=== PATIENT | male | born 1990 | race African-American/Black ===

== ENCOUNTER 2018-11-19 18:06 | Emergency (ER) | payer SELFPAY ==
[~2018-11-19] VITALS: Ht 167.6 cm; Wt 72.6 kg
[2018-11-19 18:34] VITALS: BP 123/67
--- NOTE | 2018-11-19 18:42 | PHYS DOC ---
Past Medical History Past Medical History: No Pertinent History Past Surgical History: No Surgical History Alcohol Use: Rarely Drug Use: Marijuana Adult General Chief Complaint Chief Complaint: SEXUALLY TRANSMITTED DISEASE HPI HPI Patient is a 28 year old Male who presents with sexual partner diagnosed with chlamydia. Patient is here for testing and treatment. Patient denies any symptoms of sexually transmitted diseases. Review of Systems Review of Systems : sexual transmitted disease exposure. Denies dysuria or hematuria [] All other systems were reviewed and found to be within normal limits, except as documented in this note. Current Medications Current Medications Current Medications Medications (Trade) Dose Ordered Sig/Amanda Start Time Stop Time Status Last Admin Dose Admin Azithromycin (Zithromax) 1,000 mg 1X ONCE 11/19/18 18:45 11/19/18 18:46 DC 11/19/18 19:10 1,000 MG Ceftriaxone Sodium (Rocephin Im) 250 mg 1X ONCE 11/19/18 18:45 11/19/18 18:46 DC 11/19/18 19:10 250 MG Allergies Allergies Allergies Coded Allergies Type Severity Reaction Last Updated Verified No Known Drug Allergies 10/02/13 No Physical Exam Physical Exam Constitutional: Well developed, well nourished, no acute distress, non-toxic appearance. [] Abdomen: Bowel sounds normal, soft, no tenderness, no masses, no pulsatile masses. [] Skin: Warm, dry, no erythema, no rash. [] Neurologic: Alert and oriented X 3, normal motor function, normal sensory function, no focal deficits noted. [] Psychologic: Affect normal, judgement normal, mood normal. Normal Physical Exam [] Current Patient Data Vital Signs Vital Signs Date Time Temp Pulse Resp B/P (MAP) Pulse Ox O2 Delivery O2 Flow Rate FiO2 11/19/18 18:34 98.5 98 16 123/67 (85) 100 Room Air 98.5 Lab Values Laboratory Tests Test 11/19/18 18:45 Urine Color Janelle Urine Clarity Clear Urine pH 6.5 Urine Specific Sinclair >=1.030 Urine Protein Negative mg/dL (NEG-TRACE) Urine Glucose (UA) Negative mg/dL (NEG) Urine Ketones (Stick) Negative mg/dL (NEG) Urine Blood Negative (NEG) Urine Nitrite Negative (NEG) Urine Bilirubin Negative (NEG) Urine Urobilinogen Dipstick 1.0 mg/dL (0.2 mg/dL) Urine Leukocyte Esterase Small (NEG) Urine RBC 0 /HPF (0-2) Urine WBC 1-4 /HPF (0-4) Urine Squamous Epithelial Cells Occ /LPF Urine Bacteria 0 /HPF (0-FEW) Urine Mucus Mod /LPF EKG EKG [] Radiology/Procedures Radiology/Procedures [] Course & Med Decision Making Course & Med Decision Making Patient denies any pain. Abdomen is soft and nontender. Patient denies any abdominal pain, dysuria, penile discharge, testicle pain, penile pain. Patient has no penile discharge or sores to his genitals. Vital signs within normal limits. Patient is treated with Rocephin and azithromycin today. Patient is told that he will be called in 48 hours only if his results are positive. Dragon Disclaimer Dragon Disclaimer This electronic medical record was generated, in whole or in part, using a voice recognition dictation system. Departure Departure Impression: Primary Impression: Sexually transmitted disease exposure Disposition: HOME, SELF-CARE Condition: STABLE Referrals: NO PCP (PCP) Patient Instructions: Sexually Transmitted Disease Additional Instructions: FOLLOW UP WITH PRIMARY CARE IF NEEDED. YOU WILL BE CALLED ONLY IF YOU ARE POSITIVE. QI SANCHEZ [employer]RELATED [employer] Nov 19, 2018 18:42
[2018-11-19] MEDS ORDERED: cefTRIAXone IM 250 MG VIAL IM ONE (18:45)
[2018-11-19] MEDS ORDERED: AZITHROMYCIN 250 MG TABLET. PO ONE (18:45)
[2018-11-19 19:15] LABS: BILIRUBIN,URINE NEGATIVE (NEG); CLARITY,URINE CLEAR; COLOR,URINE AMBER; NITRITE,URINE NEGATIVE (NEG); PH,URINE 6.5; PROTEIN,URINE NEGATIVE (NEG-TRACE)
[2018-11-19 19:29] LABS: RBC,URINE 0 /HPF (0-2)
[2018-11-19 19:30] LABS: BACTERIA,URINE 0 /HPF (0-FEW); SQUAMOUS EPITHELIAL CELL,UR OCC /LPF
== END 2018-11-19 19:35 | disposition home or self-care (01) ==
LOC: ER 18:06
DX: Z20.2 Contact with and (suspected) exposure to infections with a predominantly sexual mode of transmission (principal)
CPT/HCPCS: 81001; 87086; 87491; 87591; 96372; 99284; J0696; Q0144

== ENCOUNTER 2018-11-26 09:51 | Emergency (ER) | payer SELFPAY ==
[~2018-11-26] VITALS: Ht 167.6 cm; Wt 72.6 kg
[2018-11-26] MEDS ORDERED: IV NORMAL SALINE 1000ML BAG 1,000 ML IV SCH (09:57)
--- NOTE | 2018-11-26 10:15 | PHYS DOC ---
Past Medical History Past Medical History: No Pertinent History Past Surgical History: No Surgical History Alcohol Use: Rarely Drug Use: Marijuana Adult General Chief Complaint Chief Complaint: ABDOMINAL PAIN HPI HPI 28 year male presents immersed for complaints of abdominal pain, vomiting, nausea, decreased oral intake. Patient was treated here within the last 2 weeks for chlamydia. He describes pain as sharp sensation, located in the middle of his abdomen does have some radiation of the right lower quadrant. Denies any diarrhea, dysuria, fever. Unable to keep oral intake down states he vomits with food or water. Review of Systems Review of Systems Constitutional: Denies fever or chills [] Respiratory: Denies cough or shortness of breath [] Cardiovascular: No additional information not addressed in HPI [] GI: + abdominal pain, nausea, vomiting, no bloody stools or diarrhea [] : Denies dysuria or hematuria [] Musculoskeletal: Denies back pain or joint pain [] Integument: Denies rash or skin lesions [] Neurologic: Denies headache, focal weakness or sensory changes [] All other systems were reviewed and found to be within normal limits, except as documented in this note. Current Medications Current Medications Current Medications Medications (Trade) Dose Ordered Sig/Amanda Start Time Stop Time Status Last Admin Dose Admin Info (CONTRAST GIVEN -- Rx MONITORING) 1 each PRN DAILY PRN 11/26/18 11:30 11/28/18 11:29 Iohexol (Omnipaque 300 Mg/ml) 75 ml 1X ONCE 11/26/18 11:15 11/26/18 11:16 DC 11/26/18 11:29 75 ML Morphine Sulfate (Morphine Sulfate) 4 mg 1X ONCE 11/26/18 10:30 11/26/18 10:31 DC 11/26/18 10:41 4 MG Ondansetron HCl (Zofran) 4 mg 1X ONCE 11/26/18 10:30 11/26/18 10:31 DC 11/26/18 10:41 4 MG Sodium Chloride 1,000 ml @ 1,000 mls/hr Q1H 11/26/18 09:57 11/26/18 10:56 DC 11/26/18 10:40 1,000 MLS/HR Allergies Allergies Allergies Coded Allergies Type Severity Reaction Last Updated Verified No Known Drug Allergies 10/02/13 No Physical Exam Physical Exam Constitutional: Well developed, well nourished, no acute distress, non-toxic appearance. [] HENT: Normocephalic, atraumatic, bilateral external ears normal, oropharynx moist, no oral exudates, nose normal. [] Eyes: PERRLA, EOMI, conjunctiva normal, no discharge. [] Cardiovascular:Heart rate regular rhythm, no murmur [] Lungs & Thorax: Bilateral breath sounds clear to auscultation [] Abdomen: soft, TTP supraumbilical and right lower quadrant Skin: Warm, dry, no erythema, no rash. [] Back: No tenderness, no CVA tenderness. [] Extremities: No tenderness, no edema. [] Neurologic: Alert and oriented X 3, no focal deficits noted. [] Psychologic: Affect normal, judgement normal, mood normal. [] Current Patient Data Vital Signs Vital Signs Date Time Temp Pulse Resp B/P (MAP) Pulse Ox O2 Delivery O2 Flow Rate FiO2 11/26/18 10:45 92 18 129/77 (94) 100 Room Air 11/26/18 10:18 98.4 98.4 Lab Values Laboratory Tests Test 11/26/18 10:25 White Blood Count 10.5 x10^3/uL (4.0-11.0) Red Blood Count 5.18 x10^6/uL (4.30-5.70) Hemoglobin 16.1 g/dL (13.0-17.5) Hematocrit 48.1 % (39.0-53.0) Mean Corpuscular Volume 93 fL (79-100) Mean Corpuscular Hemoglobin 31 pg (25-35) Mean Corpuscular Hemoglobin Concent 34 g/dL (31-37) Red Cell Distribution Width 13.2 % (11.5-14.5) Platelet Count 304 x10^3/uL (140-400) Neutrophils (%) (Auto) 70 % (31-73) Lymphocytes (%) (Auto) 20 % (24-48) L Monocytes (%) (Auto) 9 % (0-9) Eosinophils (%) (Auto) 0 % (0-3) Basophils (%) (Auto) 1 % (0-3) Neutrophils # (Auto) 7.3 x10^3/uL (1.8-7.7) Lymphocytes # (Auto) 2.1 x10^3/uL (1.0-4.8) Monocytes # (Auto) 1.0 x10^3/uL (0.0-1.1) Eosinophils # (Auto) 0.0 x10^3/uL (0.0-0.7) Basophils # (Auto) 0.0 x10^3/uL (0.0-0.2) Sodium Level 146 mmol/L (136-145) H Potassium Level 3.5 mmol/L (3.5-5.1) Chloride Level 106 mmol/L (98-107) Carbon Dioxide Level 29 mmol/L (21-32) Anion Gap 11 (6-14) Blood Urea Nitrogen 8 mg/dL (8-26) Creatinine 1.0 mg/dL (0.7-1.3) Estimated GFR (Cockcroft-Gault) 109.3 BUN/Creatinine Ratio 8 (6-20) Glucose Level 83 mg/dL (70-99) Calcium Level 9.2 mg/dL (8.5-10.1) Total Bilirubin 0.4 mg/dL (0.2-1.0) Aspartate Amino Transferase (AST) 22 U/L (15-37) Alanine Aminotransferase (ALT) 24 U/L (16-63) Alkaline Phosphatase 99 U/L (46-116) Total Protein 8.4 g/dL (6.4-8.2) H Albumin 4.3 g/dL (3.4-5.0) Albumin/Globulin Ratio 1.0 (1.0-1.7) Lipase 117 U/L (73-393) Laboratory Tests 11/26/18 10:25 Laboratory Tests 11/26/18 10:25 EKG EKG [] Radiology/Procedures Radiology/Procedures [facility] [address] [place] [address] IMAGING REPORT Signed PATIENT: HERBERT HASTINGS ACCOUNT: [id number] : 1990 LOCATION: ER AGE: 28 SEX: M EXAM STATUS: REG ER ORD. PHYSICIAN: SONAL VAZQUEZ MD REASON: abdominal pain, right lower quadrant PROCEDURE: CT ABD PELV W/ IV CONTRST ONLY Examination: CT ABD PELV W/ IV CONTRST ONLY History: Right lower quadrant abdominal pain Comparison/Correlation: None Findings: Axial images of the abdomen and pelvis were obtained following IV contrast. Sagittal and coronal reformatted images were provided. Motion is noted involving the on most of the images and this may mildly limit assessment. Visual lung bases are clear. Liver, spleen, pancreas, adrenal glands, and kidneys are normal. Gallbladder fossa is unremarkable. Appendix is grossly unremarkable. No inflammatory changes about the distal appendix is seen. Evaluation is limited due to minimal mesenteric fat about the site of the distal appendix and adjacent small bowel. Urinary bladder is unremarkable. Bony structures are unremarkable. No ascites or pelvic free fluid. No enlarged abdominal or pelvic lymph nodes. No bowel obstruction. Impression: No inflammatory findings identified to involve the right lower quadrant. Appendix is mostly delineated and unremarkable. PQRS Compliance Statement: One or more of the following individualized dose reduction techniques were utilized for this examination: 1. Automated exposure control 2. Adjustment of the mA and/or kV according to patient size 3. Use of iterative reconstruction technique Electronically signed by: Fred Chapa MD (11/26/2018 11:52 AM) [facility] DICTATED and SIGNED BY: FRED CHAPA MD DATE: 11/26/18 1152 [] Course & Med Decision Making Course & Med Decision Making Pertinent Labs and Imaging studies reviewed. (See chart for details) []28 year male presents immersed for complaints of abdominal pain, vomiting, nausea, decreased oral intake. Patient was treated here within the last 2 weeks for chlamydia. He describes pain as sharp sensation, located in the middle of his abdomen does have some radiation of the right lower quadrant. Denies any diarrhea, dysuria, fever. Unable to keep oral intake down states he vomits with food or water. Labs/Imaging reviewed IVF x 1 liter NS Morphine/Zofran IV x 1 CT without evidence of acute intra-abdominal process Discussed with patient, plan bentyl and zofran as needed No acute process identified fro pain Dragon Disclaimer Dragon Disclaimer This electronic medical record was generated, in whole or in part, using a voice recognition dictation system. Departure Departure Impression: Primary Impression: Abdominal pain Disposition: HOME, SELF-CARE Condition: STABLE Referrals: NO PCP (PCP) Patient Instructions: Abdominal Pain (Nonspecific) Additional Instructions: Recommend follow up with PCP 3 - 5 days Return to the ER with worsening symptoms, intractable pain, fever, altered mental status Tylenol/Motrin as needed for pain Take medications as directed Scripts Ondansetron Hcl (ZOFRAN) 4 Mg Tablet 1 TAB PO Q6HRS, #20 TAB Prov: SONAL VAZQUEZ MD 11/26/18 Dicyclomine Hcl (DICYCLOMINE HCL) 20 Mg Tablet 1 TAB PO BID, #60 TAB 11 Refills Prov: SONAL VAZQUEZ MD 11/26/18 Problem Qualifiers Primary Impression: Abdominal pain Abdominal location: lower abdomen, unspecified Qualified Codes: R10.30 - Lower abdominal pain, unspecified SONAL VAZQUEZ MD Nov 26, 2018 10:15
[2018-11-26] MEDS ORDERED: MORPHINE SULFATE 4 MG/ML VIAL. IV ONE (10:30)
[2018-11-26] MEDS ORDERED: ONDANSETRON PF 4 MG/2 ML VIAL. IV ONE (10:30)
[2018-11-26 10:45] LABS: CALCIUM 9.2 mg/dL (8.5-10.1); GFR 109.3; POTASSIUM 3.5 mmol/L (3.5-5.1)
[2018-11-26 10:49] LABS: BASO % 1 % (0-3); EOS % 0 % (0-3); HEMATOCRIT 48.1 % (39.0-53.0); HEMOGLOBIN 16.1 g/dL (13.0-17.5); LYMPH # 2.1 x10^3/uL (1.0-4.8); LYMPH % 20 % (24-48); MEAN CORPUSCULAR HEMOGLOBIN 31 pg (25-35); MEAN CORPUSCULAR HGB CONC 34 g/dL (31-37); MEAN CORPUSCULAR VOLUME 93 fL (79-100); MONO % 9 % (0-9); NEUT # 7.3 x10^3/uL (1.8-7.7); NEUT % 70 % (31-73); PLATELET COUNT 304 x10^3/uL (140-400); RED BLOOD COUNT 5.18 x10^6/uL (4.30-5.70); RED CELL DISTRIBUTION WIDTH 13.2 % (11.5-14.5); WHITE BLOOD COUNT 10.5 x10^3/uL (4.0-11.0)
[2018-11-26 10:51] LABS: ALBUMIN 4.3 g/dL (3.4-5.0); TOTAL BILIRUBIN 0.4 mg/dL (0.2-1.0); TOTAL PROTEIN 8.4 g/dL (6.4-8.2)
[2018-11-26] MEDS ORDERED: IOHEXOL 300 MG/ML 100ML VIAL. IV ONE (11:15)
[2018-11-26] MEDS ORDERED: CONTRAST GIVEN. MC PRN (11:30)
[2018-11-26 11:45] VITALS: BP 127/69
--- NOTE | 2018-11-26 11:55 | RAD ---
Examination: CT ABD PELV W/ IV CONTRST ONLY History: Right lower quadrant abdominal pain Comparison/Correlation: None Findings: Axial images of the abdomen and pelvis were obtained following IV contrast. Sagittal and coronal reformatted images were provided. Motion is noted involving the on most of the images and this may mildly limit assessment. Visual lung bases are clear. Liver, spleen, pancreas, adrenal glands, and kidneys are normal. Gallbladder fossa is unremarkable. Appendix is grossly unremarkable. No inflammatory changes about the distal appendix is seen. Evaluation is limited due to minimal mesenteric fat about the site of the distal appendix and adjacent small bowel. Urinary bladder is unremarkable. Bony structures are unremarkable. No ascites or pelvic free fluid. No enlarged abdominal or pelvic lymph nodes. No bowel obstruction. Impression: No inflammatory findings identified to involve the right lower quadrant. Appendix is mostly delineated and unremarkable. PQRS Compliance Statement: One or more of the following individualized dose reduction techniques were utilized for this examination: 1. Automated exposure control 2. Adjustment of the mA and/or kV according to patient size 3. Use of iterative reconstruction technique Electronically signed by: Fred Sherman MD (11/26/2018 11:52 AM) [facility]
[2018-11-26] MEDS ORDERED: ONDA4TAB7 PO (12:08)
[2018-11-26] MEDS ORDERED: DICY20TA3 PO (12:08)
== END 2018-11-26 12:12 | disposition home or self-care (01) ==
LOC: ER 09:51
DX: R10.31 Right lower quadrant pain (principal); R11.2 Nausea with vomiting, unspecified; R63.0 Anorexia
CPT/HCPCS: 36415; 74177; 80053; 83690; 85025; 96361; 96374; 96375; 99285; J2270; J2405; J7030; Q9967